=== PATIENT | female | born 1995 | race Caucasian/White ===

== ENCOUNTER 2018-08-03 17:15 | Emergency (ER) | payer OTHER ==
[2018-08-03] MEDS: LIDOCAINE 1% (MDV) 10 ML INJ INJ (18:42)
== END 2018-08-03 18:54 | disposition home or self-care (01) ==
LOC: FTE 17:15
DX: T16.2XXA Foreign body in left ear, initial encounter (principal); W49.04XA Ring or other jewelry causing external constriction, initial encounter; Y92.9 Unspecified place or not applicable
CPT/HCPCS: 69200; 99282-25